=== PATIENT | female | born 1985 | race Hispanic/Latino ===

== ENCOUNTER 2024-09-01 16:43 | Emergency (ER) | payer SELFPAY ==
[2024-09-01] MEDS ORDERED: HYDROcodone/Acetaminophen 5/325 mg Tablet ONE (17:28)
== END 2024-09-01 17:41 | disposition home or self-care (01) ==
LOC: CSHERS 16:43
DX: H72.92 Unspecified perforation of tympanic membrane, left ear (principal); H72.91 Unspecified perforation of tympanic membrane, right ear
CPT/HCPCS: 99282